=== PATIENT | male | born 1970 | race Caucasian/White ===

== ENCOUNTER → 2017-10-02 | Outpatient (CLI) | payer OTHER ==
[~2017-10-02] MED LIST: ADDERALL 20 MG20 M1 PO; ALEVE220 MG PO; AMRIX15 MG PO; ANDRODERM1 EAC2 TD; CELEBREX100 MG/1 C PO; CLARITIN10 MG PO; HYDROCODON-ACE1 EAC7 PO; HYDROCODON-ACE1 EAC8 PO; HYDROCODONE-AP1 EA11 PO; HYDROCODONE-AP1 EAC6 PO; MEDROLDOSEPACK PO; MOVANTIK25 MG PO; NORCO 7.5-3251 EACH PO; VALTREX; ZANAFLEX4 MG PO
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
== END ==
LOC: M.PC 08-14 01:38
DX: S49.92XA Unspecified injury of left shoulder and upper arm, initial encounter (principal); M54.16 Radiculopathy, lumbar region; K59.03 Drug induced constipation; M79.1 Myalgia; Z79.899 Other long term (current) drug therapy; X58.XXXA Exposure to other specified factors, initial encounter; Y93.89 Activity, other specified; Y92.89 Other specified places as the place of occurrence of the external cause; Y99.8 Other external cause status

== ENCOUNTER → 2018-01-01 | Outpatient (CLI) | payer OTHER ==
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
== END | disposition home or self-care (01) ==
LOC: M.PC 01:30
DX: M54.16 Radiculopathy, lumbar region (principal); Z79.899 Other long term (current) drug therapy

== ENCOUNTER → 2018-02-26 | Outpatient (CLI) | payer OTHER ==
--- NOTE | 2018-02-27 07:13 | PAINCON ---
[address] [address] PAIN MANAGEMENT CONSULTATION Name: CHARLES FUNES Room: [facility] Tory#: [id number] Admission: 02/26/18 Attend Phys: Kip Johns Discharge: Date of : 66 Report #: [id number] THIS REPORT FOR: //name// CC: Serafin Souza HISTORY OF PRESENT ILLNESS: The patient is a 47-year-old gentleman typically treated for lumbar radiculopathy, requiring complex medication management. Last seen in the pain clinic, 01/01/2018. Random drug screen at that time was positive for prescribed medications. The patient returns to the pain clinic noting pain continues to be problematic, worse in the left shoulder and ongoing low back. He notes only nominal changes following the last epidural injection, 01/01/2018. Ongoing pain that he rates 10/10 at present. This is much higher than the patient typically reports. Denies any specific antecedent issues to change his symptomatology. Denies any myelopathic symptoms, but notes pain has become more problematic. PHYSICAL EXAMINATION: VITAL SIGNS: Shows 5 feet 9 inches, 183-pound gentleman. BMI is 27.1 kilograms per meter squared. Blood pressure 130/73, pulse 81 and respirations 20. GENERAL: Alert and oriented to person, place and time, judged to be a reasonable historian. MUSCULOSKELETAL: Cervical range of motion is modestly limited. He does have tenderness and pain in the left shoulder, with slight decrease in range of motion. Primary pain in the low back, buttock and left leg. Mildly positive straight leg raise on the left at 30 degrees. Lower extremity strength is generally preserved. Very tender from about L3 down to the lumbar paravertebral muscles. Flexion, rotating and sidebending did not significantly exacerbate the pain. SI joint does not appear to be involved. RADIOGRAPHIC DATA: MRI of the lumbar spine from about a year and a half ago, 09/2016, did note a tmvff-lr-uokylelx left paracentral disk at L4-L5 previously, with some extrinsic compression of the left exiting nerve root at this level. There was a small focal disk at L5-S1 as well. With ongoing symptoms today and significant change in physical status, we had a prolonged visit. Greater than 25 minutes were spent with the patient and Mrs. Funes today. I am concerned that his functional status is significantly impaired. He did note at last visit that he had hurt his shoulder and had received an oral Decadron prescription, which did afford excellent improvement of all of his subjective pain for a very short period of time. He is requesting an oral steroid today. Today, we have elected to repeat an MRI of the lumbar spine. We will refer the patient to Dr. Filipe Hodges for another surgical opinion. I have taken the liberty of writing for a Medrol Dosepak to help with acute [place], [place] [address] PAIN MANAGEMENT CONSULTATION Name: CHARLES FUNES Room: [facility] Spears#: [id number] Admission: 02/26/18 Attend Phys: Kip Johns Discharge: Date of : 66 Report #: [id number] that we did not want to expose the patient to prolong steroids for the fear of osteoporosis and adrenal suppression. We will continue hydrocodone 5/325 one tablet 3 times a day. I have taken the liberty of writing for 90 tablets. Follow up in 1 month for reevaluation. If symptoms continue to be problematic and he is not a surgical candidate, may consider a candidate for repeat epidural injection and we will refer for spinal cord stimulator to Dr. Kwasi Vasquez. If, however, the patient is a surgical candidate, we will be happy to continue to manage opiate analgesics as needed. Discharged in good, stable condition. Follow up after diagnostic study. <ELECTRONICALLY SIGNED> By: Serafin Vasquez DO 02/27/18 0713 1501 [id number] Vasquez DO /nt
== END ==
LOC: M.PC 04:03
DX: M54.16 Radiculopathy, lumbar region (principal); Z79.899 Other long term (current) drug therapy

== ENCOUNTER → 2018-03-26 | Outpatient (CLI) | payer OTHER ==
--- NOTE | 2018-03-27 07:27 | PAINCON ---
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 The patient has been using hydrocodone 5/325, typically 2-3 a day with some efficacy, though he notes one tablet does not seem to give him too much relief, 2 tablets cause him some cognitive impairment. He does note pain primarily in his shoulders. It is getting a little better with physical therapy, his range of motion is better. He saw an orthopedic surgeon who has injected the left shoulder. They are planning on injecting the right shoulder shortly. I have suggested that he will require total shoulder arthroplasty at some point due to repetitive traumas. He notes that his axial back and radicular back pain has improved following epidural injection at last visit, 01/01/2018. He returns to pain clinic today. Had a moderately prolonged visit. We reviewed the buccal drug swab, 01/01/2018, which is positive for prescribed medications (hydrocodone metabolites), amphetamine and nicotine. The patient does take Adderall and he uses an e-cigarette with nicotine. He had chewed tobacco for a prolonged period of time. We strongly encouraged him to continue weaning nicotine via the e-cigarette and then discontinue altogether. PHYSICAL EXAMINATION: Shows a pleasant 47-year-old gentleman, 5 feet 9 inches, 183 pounds, BMI is 27.3 kg per meter squared, blood pressure 120/84, pulse 106, respirations 16. Shoulder range of motion is actually remarkably preserved. Rises from chair using armrest. Gait is tandem. Lower extremity strength is preserved. Some diffuse tenderness across the low back. DIAGNOSTIC STUDIES: Reviewed diagnostic findings, bilateral shoulders, left shoulder showing advanced glenohumeral joint arthritic degenerative changes, multifocal tearing of the glenoid labrum (MRI was obtained 03/13/2018). I do not have study of the contralateral shoulder, though the patient tells me that they were similar. We discussed today concern for repeat steroid injections in shoulders leading to loss of cartilage surface. I suggested the patient look into PRP (platelet-rich plasma) injection. I did suggest he discuss this with [place] [address] PAIN MANAGEMENT CONSULTATION Name: CHARLES PENALOZA Room: [facility] Spears#: [id number] Admission: 03/26/18 Attend Phys: Kip Johns Discharge: Date of : 66 Report #: [id number] We also reviewed his lumbar MRI from greater than a year ago, 09/2016, which did note L4-L5 to have disk desiccation, small to moderate sized left paracentral disk protrusion causing some flattening of the ventral thecal sac. L5-S1 noted a small left focal disk as well. Fortunately, radicular symptoms are fairly nominal. Primary pain concern is left shoulder and low back. Subjective pain score is 1-10 on a VAS depending on activity. RECOMMENDATION: Long discussion with the patient today about therapeutic options. Ultimately, we elected to rotate from hydrocodone 5/325 t.i.d. to 7.5/325 b.i.d. I did express to the patient my concern that increasing opiate dose with concurrent increase in dopamine release tended to promote habituation issues. I told him that while I would increase the dose from 5 to 7.5, I would be loathe to continue the "slippery slope" of increasing dose every few months due to tolerance. I have taken the liberty of writing for 2 months of current medication. The patient is an opiate consent to treat contract patient. Again, random drug screen at last visit was positive for prescribed medications. The patient counseled regarding smoking cessation. Discharged in good stable condition. Approximately 25 minutes was spent reviewing therapeutic issues including diagnostic studies, opiate risks and drug dosage changes. <ELECTRONICALLY SIGNED> By: Serafin Vasquez DO 03/27/18 0727 1343 28Serafin Vasquez DO /nt
== END ==
LOC: M.PC 05:01
DX: M54.16 Radiculopathy, lumbar region (principal); M54.5 Low back pain; M25.511 Pain in right shoulder; M25.512 Pain in left shoulder; G89.29 Other chronic pain

== ENCOUNTER → 2018-04-24 | Outpatient (CLI) | payer OTHER ==
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
== END ==
LOC: M.PC 03:24
DX: M54.16 Radiculopathy, lumbar region (principal); J45.909 Unspecified asthma, uncomplicated; E29.1 Testicular hypofunction; M25.511 Pain in right shoulder; M25.512 Pain in left shoulder; Z79.899 Other long term (current) drug therapy

== ENCOUNTER → 2018-06-24 | Outpatient (CLI) | payer OTHER ==
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
== END ==
LOC: M.PC 06-19 01:44
DX: M25.512 Pain in left shoulder (principal); M25.511 Pain in right shoulder; J45.909 Unspecified asthma, uncomplicated; M54.16 Radiculopathy, lumbar region; E29.1 Testicular hypofunction; Z87.39 Personal history of other diseases of the musculoskeletal system and connective tissue

== ENCOUNTER → 2018-11-04 | Outpatient (CLI) | payer OTHER ==
--- NOTE | ~2018-11-04 | PAINCON ---
[address] [address] PAIN MANAGEMENT CONSULTATION Name: CHARLES PENALOZA Room: [facility] Spears#: [id number] Admission: 11/04/18 Attend Phys: Emeterio Mello MD Discharge: Date of : 66 Report #: [id number] THIS REPORT FOR: //name// CC: Emeterio Palafox Harley DATE OF SERVICE: 11/04/2018 CHIEF COMPLAINT: "I have been exercising and my pain is well controlled." HISTORY: The patient is a 48-year-old gentleman who has been followed in the Pain Clinic at [facility]. He had been followed by Dr. Serafin Vasquez since 2016. He has a history of lumbar radicular pain. He has undergone epidural steroid injections in the past. He has gleaned benefits from these. He remains very active. He does engage in extreme sports. He has run marathons of up to 100 miles. He continues to have some pain and discomfort in his shoulders. At this juncture, he has continued to work out. He feels that things are going reasonably well. He is not using any opioid medications. He has not used any opioid medications since 06/2018. He has been blocked upon an exercise program and finds that overall things have improved. He rates his pain as a 0/10 today. ALLERGIES: No known drug allergies. CURRENT MEDICATIONS: The patient is not on any opioid medications. PAIN CLINIC ASSESSMENT/PQRS: 1. The patient is not being treated for any rheumatoid arthritis. Did have some arthritic changes in his shoulders bilaterally. 2. Height 5 feet 9 inches, weight 175 pounds. 3. Vital signs: blood pressure 120/72, heart rate 79, respiratory rate 16, room air saturation 99%, temperature 97.9. Pain score is 0/10. 4. Fall risk. The patient has not fallen in the last 3 months. 5. Blood thinner. The patient is not on a blood thinning medication. 6. Hypertension. The patient is not being treated for hypertension. 7. Opioids greater than 6 weeks. The patient does not use opioid medications since 06/2018. 8. Risk assessment tool, low for opioid use. 9. Functional assessment tool. 10. Recreational drug use. The patient denies use of recreational drugs. 11. Tobacco: The patient denies use of tobacco. 12. Alcohol: The patient denies use of alcohol on a regular basis. PHYSICAL EXAMINATION: GENERAL: The patient is a well-developed and well-nourished white male. Appears his stated age. He is alert and oriented x 3. [place] [address] PAIN MANAGEMENT CONSULTATION Name: CHARLES PENALOZA Room: [facility]#: [id number] Admission: 11/04/18 Attend Phys: Emeterio Mello MD Discharge: Date of : 66 Report #: [id number] appropriate. Speech is fluent. HEENT: Normocephalic and atraumatic. Extraocular eye muscles intact. Sclerae nonicteric. Mucous membranes are moist. NECK: Without adenopathy or JVD. HEART: Regular rate. S1, S2. LUNGS: Clear to auscultation without rhonchi or rales. ABDOMEN: Nontender. Bowel sounds present. MUSCULOSKELETAL: Without significant scoliosis, kyphosis or lordosis. Lower extremity muscle strength is judged to be 5/5 for the major muscle groups. Upper extremity muscle strength is judged to be 5-/5 for the upper extremity. IMPRESSION: History of lumbar radiculopathy, much improved with physical activity. RECOMMENDATIONS: We discussed treatment options with the patient. At this juncture, he is doing quite well. He feels that opioid medications are not necessary. He is not taking any, has not taken any since 06/2018. He will follow up in the Pain Clinic in the future as needed. At this juncture, he will continue to be followed by his primary care physician and return to the Pain Clinic only should he need an epidural steroid injection or instructions. We would like to thank you for letting us participate in his care. We hope he continues to improve. By: [id number]. Gerard Mello MD /mirella
== END ==
LOC: M.PC 12:10
DX: M54.16 Radiculopathy, lumbar region (principal); I10 Essential (primary) hypertension; Z79.891 Long term (current) use of opiate analgesic